=== PATIENT | male | born 1960 | race Caucasian/White ===

== ENCOUNTER 2022-07-22 09:09 | Inpatient (IN) | payer OTHER ==
[~2022-07-22] VITALS: Ht 182.9 cm; Wt 77.1 kg
[2022-07-22 09:18] VITALS: BP 139/68
--- NOTE | 2022-07-22 09:21 | NUR ---
PT GIVEN APPLE JUICE AND SANDWICH, DENIES ANY PAIN AT THIS TIME.
--- NOTE | 2022-07-22 09:27 | NUR ---
NIRAV FROM [place] C/O GEN WEAK AND HYPOGLYCEMIA, PER EMS BS ON SCENE 49, GIVEN 1 BAG D10, BS AFTER 101, BS AT BEDSIDE 81. PT A/OX4, VERBALLY RESPONSIVE WITH INCONTINENCE. PT GIVEN JUICE AND SANDWICH, DR OLSEN MADE AWARE. RESPIRATIONS EVEN AND UNLABORED, PLACED ON MONITOR. HOB ELEVATED, BED IN LOWEST POSITION NKA PMH: HTN, DM Addendum: 07/22/22 at 0930 by [email or web address] DENIES ANY NVD
--- NOTE | 2022-07-22 09:45 | NUR ---
DR OLSEN AT BEDSIDE FOR EVAL
[2022-07-22] MEDS ORDERED: DEXTROSE 10% 1,000 ML IV SCH (09:55)
--- NOTE | 2022-07-22 10:01 | NUR ---
LAB AT BEDSIDE
[2022-07-22] MEDS ORDERED: DEXTROSE 10% 1,000 ML IV ONE (10:05)
[2022-07-22 10:07] LABS: BASOPHILS # (AUTO) 0.1 K/uL (0.00-0.22); BASOPHILS % (AUTO) 0.3 % (0.0-2.0); EOSINOPHILS % (AUTO) 0.2 % (0.0-4.0); HEMATOCRIT 48.2 % (36-52); HEMOGLOBIN 16.5 g/dL (12.0-18.0); LYMPHOCYTES # (AUTO) 0.8 K/uL (2.0-11.5); MEAN CORPUSCULAR HEMOGLOBIN 29 pg (27-31); MEAN CORPUSCULAR HGB CONC 34 g/dL (33-37); MEAN CORPUSCULAR VOLUME 85.8 fL (80-94); MONOCYTES # (AUTO) 0.7 K/uL (0.8-1.0); MONOCYTES % (AUTO) 4.4 % (1.7-9.3); NEUTROPHILS # (AUTO) 14.2 K/uL (1.8-7.7); NEUTROPHILS % (AUTO) 90.1 % (42.2-75.2); PLATELET COUNT (AUTO) 258 K/uL (140-450); RED BLOOD CELL COUNT(AUTO) 5.62 MIL/uL (4.20-6.10); RED CELL DISTRIBUTION WIDTH 13.9 % (11.6-13.7); WHITE BLOOD COUNT (AUTO) 15.8 K/uL (4.8-10.8)
--- NOTE | 2022-07-22 10:35 | NUR ---
TO CT VIA [facility]
--- NOTE | 2022-07-22 10:57 | NUR ---
PT RETURN FROM CT, DENIES PAIN AT THIS TIME, PLACED ON MONITOR, RESPIRATIONS EVEN AND UNLABORED, DENIES ANY NAUSEA, VOMITING
[2022-07-22 11:11] LABS: ALBUMIN 3.8 g/dL (3.4-5.0); ANION GAP 11.4 (8-16); ASPARTATE AMINOTRANSFERASE 70 U/L (15-37); CARBON DIOXIDE 30.1 mmol/L (21-32); CHLORIDE 101 mmol/L (98-107); CREATININE 0.9 mg/dL (0.6-1.3); GFR ARICAN-AMERICAN 111 mL/min (>90); GLUCOSE 98 mg/dL (74-106); LIPASE 40 U/L (73-393); POTASSIUM 3.5 mmol/L (3.5-5.1); SODIUM SERUM 139 mmol/L (136-145); UREA NITROGEN, BLOOD 13 mg/dL (7-18)
[2022-07-22] MEDS ORDERED: INSU100S22 SUBQ (12:44)
[2022-07-22] MEDS ORDERED: INSU100I21 SUBQ (12:44)
--- NOTE | 2022-07-22 12:45 | NUR ---
PT STATES THAT HE IS CONTINUES TO FEEL WEAK IN HIS LEGS, ATTEMPTED TO ASSESS PT AMBULATION, PT REFUSING TO SIT UP, ABLE TO LIFT ALL EXTREMITIES. DR OLSEN MADE AWARE
--- NOTE | 2022-07-22 13:00 | NUR ---
PT AMBULATING TO BATHROOM WITH STEADY GAIT, CHANGED INTO A GOWN
[2022-07-22] MEDS ORDERED: ACETAMINOPHEN EXTRA STRENGTH 500 MG TAB PO ONE (13:05)
[2022-07-22] MEDS ORDERED: NACL 0.9% 1,000 ML IV SCH (14:05)
--- NOTE | 2022-07-22 17:55 | NUR ---
Patient will be admitted to care of DR FALLON ANDERSON. Admited to MED SURG. Will go to room 111A. Belongings list completed. Report to BENITEZ MORILLO.
--- NOTE | 2022-07-22 18:00 | NUR ---
RECEIVED FROM ER VIA [facility]. A & O X4. SPEECH CLEAR. NO C/O PAIN. NO SOB, NOTED. SKIN WARM, DRY, AND INTACT. IV ACCESS ON RIGHT AC GAUGE #18 (GREEN) PATENT AND INTACT. KEEP COMFORTABLE ON BED. WILL ENDORSED TO SUPERVISOR TOWER NURSE FOR COMPLETE ADMISSION PROCESS. COLLECTED MRSA NARES SPECIMEN AND WILL SEND TO LAB. INFORMED CHARGE NURSE YOSELIN VALENCIA.
[2022-07-22 18:15] VITALS: BP 117/62
[2022-07-22] MEDS ORDERED: DEXTROSE 50% 50 ML SYR IVP PRN (18:55)
--- NOTE | 2022-07-22 19:30 | NUR ---
RECEIVED REPORT FROM DAY SHIFT NURSE BENITEZ FOR CONTINUITY OF CARE. PATIENT IS A&O X4. PATIENT IS ON RA; BREATHING IS NORMAL WITH SYMMETRICAL RISE AND FALL OF CHEST. IV IS A 18G RAC, RUNNING NS 100. PATIENT IS AWAKE, LYING DOWN IN SEMI-FOWLERS POSITION. BED IS IN LOWEST POSITION, WHEELS LOCKED, CALL LIGHT IN PLACE. WILL CONTINUE TO OBSERVE PATIENT.
[2022-07-22 20:00] VITALS: BP 124/69
[2022-07-22] MEDS ORDERED: HYDROcodone/APAP 7.5/325 MG 1 TAB PO PRN (20:35)
[2022-07-22] MEDS ORDERED: ZOLPIDEM 5 MG TAB PO PRN (20:35)
[2022-07-22] MEDS ORDERED: POTASSIUM CHLORIDE 10 MEQ TABER PO PRN (20:35)
[2022-07-22] MEDS ORDERED: ONDANSETRON 4 MG/2 ML VIAL IM/IVP PRN (20:35)
[2022-07-22] MEDS ORDERED: DOCUSATE SODIUM 100 MG GELCAP PO PRN (20:35)
[2022-07-22] MEDS ORDERED: ACETAMINOPHEN 325 MG TAB PO PRN (20:35)
[2022-07-22] MEDS: NACL 0.9% 1,000 ML IV SCH (20:35)
[2022-07-22] MEDS ORDERED: guaiFENesin DM 200/20 MG-10 ML 10 ML UDC PO PRN (20:35)
[2022-07-22 21:39] LABS: FREE T4 (FREE THYROXINE) 1.42 ng/dL (0.76-1.46); MAGNESIUM 2.2 mg/dL (1.8-2.4); PHOSPHORUS 4.2 mg/dL (2.5-4.9)
[2022-07-22] MEDS: BLOOD GLUCOSE MONITORING 1 DEV DEV FS SCH (21:43)
[2022-07-22] MEDS: INSULIN LISPRO SLIDING SCALE 100 UNITS/ML VIAL SUBQ PRN (21:46)
[2022-07-22 22:01] LABS: PROTHROMBIN TIME 10.5 secs (10.8-13.4)
[2022-07-22 22:04] LABS: THYROID STIMULATING HORMONE 0.37 uIU/mL (0.34-3.74)
--- NOTE | 2022-07-23 01:00 | NUR ---
PATIENT WAS COOPERATIVE DURING ADMISSION; BUT THEN ROLLED OVER TO GO TO SLEEP. PATIENT'S IV IS PATENT RUNNING NS 100. PATIENT HAS BEEN SLEEPING COMFORTABLY. BREATHING IS NORMAL WITH SYMMETRICAL RISE AND FALL OF CHEST. WILL CONTINUE TO OBSERVE PATIENT.
[2022-07-23 04:00] VITALS: BP 120/61
[2022-07-23 06:46] LABS: BASOPHILS # (AUTO) 0.1 K/uL (0.00-0.22); BASOPHILS % (AUTO) 0.8 % (0.0-2.0); EOSINOPHILS # (AUTO) 0.3 K/uL (0-0.4); EOSINOPHILS % (AUTO) 2.3 % (0.0-4.0); HEMATOCRIT 48.3 % (36-52); HEMOGLOBIN 16.7 g/dL (12.0-18.0); LYMPHOCYTES % (AUTO) 17.8 % (20.5-51.1); MEAN CORPUSCULAR HEMOGLOBIN 30 pg (27-31); MEAN CORPUSCULAR HGB CONC 35 g/dL (33-37); MONOCYTES # (AUTO) 0.7 K/uL (0.8-1.0); MONOCYTES % (AUTO) 6.5 % (1.7-9.3); NEUTROPHILS # (AUTO) 8.3 K/uL (1.8-7.7); NEUTROPHILS % (AUTO) 72.6 % (42.2-75.2); PLATELET COUNT (AUTO) 246 K/uL (140-450); RED BLOOD CELL COUNT(AUTO) 5.62 MIL/uL (4.20-6.10); RED CELL DISTRIBUTION WIDTH 13.8 % (11.6-13.7); WHITE BLOOD COUNT (AUTO) 11.4 K/uL (4.8-10.8)
--- NOTE | 2022-07-23 06:59 | NUR ---
CHECKED PATIENT'S BS. BS WAS 45; ADMINISTERED DEX 50% IVP. PATIENT TOLERATED WELL. PATIENT IS AWAKE AND ALERT. WILL ENDORSE CARE TO DAY SHIFT NURSE.
[2022-07-23] MEDS: BLOOD GLUCOSE MONITORING 1 DEV DEV FS SCH ×4 (07:01→21:14)
[2022-07-23 07:12] LABS: CARBON DIOXIDE 29.2 mmol/L (21-32); CREATININE 0.8 mg/dL (0.6-1.3); POTASSIUM 3.2 mmol/L (3.5-5.1)
--- NOTE | 2022-07-23 07:43 | NUR ---
ENDORSED TO DAY SHIFT NURSE GABI FOR CONTINUITY OF CARE. PATIENT IS STABLE.
--- NOTE | 2022-07-23 07:55 | NUR ---
GOT REPORT FROM THE NIGHT NURSE, PT AWAKE DISCUSSED POC, NO SOB.[id number]
[2022-07-23] MEDS: PANTOPRAZOLE 40 MG TABEC PO SCH (08:26)
--- NOTE | 2022-07-23 08:58 | NUR ---
PATIENT HAS BEEN SCREENED AND CATEGORIZED HIGH NUTRITION RISK. PATIENT WILL BE SEEN WITHIN 1-2 DAYS OF ADMISSION. 07/22/22-07/24/22 REFERRAL RECEIVED 07/23/22 FOR UNCONTROLLED DM. PT WILL BE SEEN WITHIN 1-2 DAYS OF REFERRAL. REVIEWED BY KENNETH ANDERSON RD Addendum: 07/23/22 at [address] REFERRAL DOES NOT MEET HIGH RISK CRITERIA PER HOSPITAL POLICY. PT WILL BE SEEN AND ASSESSED ACCORDING TO THE NUTRITION CARE POLICY. PATIENT HAS BEEN RE-SCREENED AND CATEGORIZED MODERATE NUTRITION RISK. PATIENT WILL BE SEEN WITHIN 3-5 DAYS OF ADMISSION.
[2022-07-23 10:19] VITALS: BP 140/80
[2022-07-23] MEDS: INSULIN LISPRO SLIDING SCALE 100 UNITS/ML VIAL SUBQ PRN ×3 (11:44→21:18)
--- NOTE | 2022-07-23 12:15 | NUR ---
DC PLANNING SW ATTEMPTED TO MEET PT AT BEDSIDE TO COMPLETE ASSESSMENT, HOWEVER, PT BEING SEEN BY RADIOLOGY FOR X-RAY. SW TO ATTEMPT TO MEET WITH PT 07/24
[2022-07-23] MEDS: NACL 0.9% 1,000 ML IV SCH (13:29)
[2022-07-23 17:06] VITALS: BP 117/60
--- NOTE | 2022-07-23 18:04 | NUR ---
COLLECTED THE URINE SENT TO THE LAB.[id number]
[2022-07-23 18:11] LABS: APPEARANCE,URINE CLEAR (CLEAR); BILIRUBIN,URINE NEGATIVE (NEGATIVE); BLOOD, URINE NEGATIVE (NEGATIVE); COLOR,URINE YELLOW (YELLOW); LEUKOCYTE ESTERASE ,URINE NEGATIVE (NEGATIVE); NITRITE, URINE NEGATIVE (NEGATIVE); UGLUCOSE TRACE (NEGATIVE)
[2022-07-23 18:28] LABS: BARBITURATE, URINE NEGATIVE ng/ml (NEG <=200); BENZODIAZEPINE, URINE NEGATIVE ng/mL (NEG <=200); CANNABINOID, URINE NEGATIVE ng/mL (NEG <=50); COCAINE, URINE NEGATIVE ng/mL (NEG <=300); OPIATE, URINE NEGATIVE ng/mL (NEG <=2000); PHENCYCLIDINE SCREEN,URINE NEGATIVE ng/mL (NEG <=25)
--- NOTE | 2022-07-23 19:15 | NUR ---
RECEIVED ENDORSEMENT FROM GABI MAK FOR CONTINUITY OF CARE, PATIENT WAS STABLE DURING THE SHIFT CHANGE. IT WAS ENDORSED PATIENT CAN BECOME CONFUSED ABOUT ACCUCHECKS. PATIENT WAS CURRENTLY IN BED RESTING WITHOUT INCIDENT. PATIENT HAS NO S/S OF PAIN/DISCOMFORT. NO NOTED S/S OF HYPER/HYPOGLYCEMIA. PATIENT IS AMBULATORY TO BATHROOM. CALL LIGHT WITHIN REACH. STUART RAILS UP X 2 FOR SAFETY AND COMFORT. [email or web address]
--- NOTE | 2022-07-23 21:04 | NUR ---
PATIENT CAME TO THE NURSES STATION TO USE THE RESTROOM BUT WANTED TO BE REMOVED FROM THE IV. NURSING EDUCATION USING A URINAL FOR URIN TO REMAIN ON THE IV HYDRATION. NURSE ENCOURAGED TO USE THE CALL LIGHT IF HE WOULD LIKE TO USE THE BATHROOM FOR A BOWEL MOVEMENT. PATIENT UNDERSTOOD AND AGREED. [email or web address]
[2022-07-23 23:53] VITALS: BP 138/79
--- NOTE | 2022-07-24 00:21 | NUR ---
PATIENT NOTED IN BED ASLEEP WITHOUT INCIDENT. CHEST RISING AND FALLING EVENLY. NO NOTED S/S OF PAIN/DISCOMFORT. [email or web address]
--- NOTE | 2022-07-24 03:33 | NUR ---
PATIENT NOTED IN BED ASLEEP WITHOUT INCIDENT. CHEST RISING AND FALLING EVENLY. NO NOTED S/S OF PAIN/DISCOMFORT. SIDE RAILS UP CALL LIGHT WITHIN REACH. [email or web address]
[2022-07-24] MEDS: NACL 0.9% 1,000 ML IV SCH (05:55)
[2022-07-24] MEDS: BLOOD GLUCOSE MONITORING 1 DEV DEV FS SCH ×2 (06:37→11:58)
--- NOTE | 2022-07-24 07:05 | NUR ---
ENDORSED PATIENT TO GABI RN FOR CONTINUITY OF CARE, PATIENT WAS STABLE DURING SHIFT CHANGE. [email or web address]
[2022-07-24 07:13] LABS: BASOPHILS # (AUTO) 0.1 K/uL (0.00-0.22); EOSINOPHILS # (AUTO) 0.3 K/uL (0-0.4); EOSINOPHILS % (AUTO) 3.1 % (0.0-4.0); HEMATOCRIT 45.4 % (36-52); HEMOGLOBIN 15.6 g/dL (12.0-18.0); LYMPHOCYTES # (AUTO) 2.3 K/uL (2.0-11.5); LYMPHOCYTES % (AUTO) 21.6 % (20.5-51.1); MEAN CORPUSCULAR HEMOGLOBIN 30 pg (27-31); MEAN CORPUSCULAR HGB CONC 34 g/dL (33-37); MEAN CORPUSCULAR VOLUME 86.3 fL (80-94); MONOCYTES # (AUTO) 0.8 K/uL (0.8-1.0); MONOCYTES % (AUTO) 7.3 % (1.7-9.3); NEUTROPHILS # (AUTO) 7.3 K/uL (1.8-7.7); PLATELET COUNT (AUTO) 223 K/uL (140-450); RED BLOOD CELL COUNT(AUTO) 5.26 MIL/uL (4.20-6.10); RED CELL DISTRIBUTION WIDTH 13.6 % (11.6-13.7); WHITE BLOOD COUNT (AUTO) 10.8 K/uL (4.8-10.8)
--- NOTE | 2022-07-24 07:18 | NUR ---
GOT REPORT FROM THE NIGHT NURSE , PT SLEEPING, IV FLUID OFF,NO SOB.[id number]
[2022-07-24 07:23] LABS: ANION GAP 8.6 (8-16); CREATININE 0.7 mg/dL (0.6-1.3); POTASSIUM 3.6 mmol/L (3.5-5.1)
[2022-07-24 08:00] VITALS: BP 148/80
[2022-07-24 08:08] LABS: T4 (THYROXINE) 9.2 ug/dL (4.5-12.0)
[2022-07-24] MEDS: PANTOPRAZOLE 40 MG TABEC PO SCH (08:38)
[2022-07-24] MEDS: INSULIN LISPRO SLIDING SCALE 100 UNITS/ML VIAL SUBQ PRN (11:48)
--- NOTE | 2022-07-24 12:03 | NUR ---
PT DISCHARGED HOME DISCHARGE INSTRUCTION GIVEN , IV AND ID BAND REMOVED , WALKED OUT WITH NURSE WITHOUT ANY DISTRESS,. [id number]
== END 2022-07-24 12:05 | disposition home or self-care (01) | DRG 420 ==
LOC: MED 09:09 → MTU 14:03
PROVIDERS: ADMIT Family Medicine; ATTEND Family Medicine
DX: E11.649 Type 2 diabetes mellitus with hypoglycemia without coma (principal); G93.41 Metabolic encephalopathy; G90.9 Disorder of the autonomic nervous system, unspecified; E83.51 Hypocalcemia; E87.6 Hypokalemia; D72.829 Elevated white blood cell count, unspecified; Z20.822 Contact with and (suspected) exposure to COVID-19
CPT/HCPCS: 36415; 70450; 71045; 73030; 80048; 80053; 80305; 81003; 82150; 82948; 83036; 83690; 83735; 83880; 84100; 84436; 84439; 84443; 84479; 84484; 85025; 85610; 85730; 87081; 93005; 96360; 96361; 99285; J1815; Q0092